=== PATIENT | male | born 1970 | race Caucasian/White ===

== ENCOUNTER → 2020-09-02 13:47 | Outpatient (CLI) | payer MEDICARE, MEDICAID, SELFPAY ==
--- NOTE | 2020-09-02 13:54 | XR_ITS ---
PROCEDURE: XR FOOT WT BEARING RT 3V CLINICAL INDICATION: pain COMPARISON: No exams were available for comparison FINDINGS: No fracture or dislocation. No lytic or blastic change. There is normal mineralization. Other findings:No significant degenerative change IMPRESSION: Negative right foot Dictated by: Link Brady MD 09/02/2020 16:25 Link Brady MD in [place] 09/02/2020 16:25
--- NOTE | 2020-09-02 13:54 | XR_ITS ---
PROCEDURE: XR FOOT WT BEARING LT 3V CLINICAL INDICATION: pain COMPARISON: No exams were available for comparison FINDINGS: No fracture or dislocation. No lytic or blastic change. There is normal mineralization. There is flexion deformity involving the DIP joint of the 2nd toe. There is mild pes planus. Other findings:None. IMPRESSION: Pes planus with hammertoe deformity of the 2nd toe Dictated by: Link Brady MD 09/02/2020 16:24 Link Brady MD in [place] 09/02/2020 16:24
== END ==
PROVIDERS: PCP Nurse Practitioner Family; Visit Provider Podiatrist
DX: M79.673 Pain in unspecified foot (principal)
CPT/HCPCS: 73630